=== PATIENT | female | born 1965 | race Caucasian/White ===

== ENCOUNTER → 2021-04-25 13:17 | Outpatient (CLI) | payer OTHER, SELFPAY ==
[2021-04-25 13:37] LABS: Bacteria Urine None Seen; RBC Urine None Seen (0-5/HPF); WBC Urine None Seen (0-5/HPF)
[2021-04-25 15:18] LABS: Add Manual Diff / Slide Review NO; Basophils Absolute Auto 0 /uL (0-100); Basophils Percent Auto 0.7 % (0-2); Eosinophils Absolute Auto 400 /uL (0-450); Eosinophils Percent Auto 5.9 % (2-4); Hematocrit 40.8 % (36-46); Hemoglobin 13.5 g/dL (12.0-16.0); Lymphocytes Absolute Auto 1800 /uL (1100-4500); Lymphocytes Percent Auto 30.5 % (25-40); Mean Corpuscular HGB Conc 33.2 % (30-36); Mean Corpuscular Hemoglobin 30.6 PG (26-34); Mean Corpuscular Volume 92.1 fL (80-100); Monocytes Absolute Auto 500 /uL (0-900); Monocytes Percent Auto 8.7 % (3-14); Neutrophils Absolute Auto 3200 /uL (1500-7000); Neutrophils Percent Auto 54.2 % (50-75); Platelet Count 211 X10^3/uL (150-400); Red Blood Cell Count 4.43 X10^6/uL (4.0-5.2); Red Cell Distribution Width 12.6 % (11.6-14.8); White Blood Cell Count 5.9 X10^3/uL (4.5-11.0)
[2021-04-25 15:38] LABS: BUN Creatinine Ratio 29.4 (6-22); Blood Urea Nitrogen 25 mg/dL (7-17); Calcium 9.5 mg/dL (8.4-10.2); Carbon Dioxide 23 mmol/L (22-32); Chloride 106 mmol/L (98-107); Estimated Glomerular Filt Rate > 60.0 mL/min (>60); Glucose 128 mg/dL (70-100); HEMOLYSIS < 15 (0-50); Potassium 3.9 mmol/L (3.4-5.1); Sodium 138 mmol/L (137-145)
[2021-04-25 15:50] LABS: Appearance Urine UA CLEAR; Bilirubin Urine UA NEGATIVE (NEGATIVE); Color Urine UA YELLOW; Glucose Urine UA NEGATIVE (Negative); Ketones Urine UA NEGATIVE (NEGATIVE); Leukocyte Esterase Urine UA NEGATIVE (NEGATIVE); Nitrite Urine UA NEGATIVE (Negative); Occult Blood Urine UA 1+ (Negative); Protein Urine UA NEGATIVE (Negative); Specific Gravity Urine UA >=1.030 (1.000-1.035); Urobilinogen Urine UA 0.2 E.U./dL (0.2)
[2021-04-25 16:02] LABS: pH Urine UA 5.5 (4.5-8.0)
[2021-04-25 16:07] LABS: Culture Indicated Urine Cult Not Indicated; Mucus Urine 2+ (Negative); Squamous Epithelial Cell Urine 5-10 /HPF (0-5/HPF)
== END ==
PROVIDERS: PCP Family Medicine; Referring Provider Orthopaedic Surgery Orthopaedic Surgery of the Spine; Visit Provider Orthopaedic Surgery Orthopaedic Surgery of the Spine
DX: Z01.818 Encounter for other preprocedural examination (principal); Z01.812 Encounter for preprocedural laboratory examination; N39.0 Urinary tract infection, site not specified
CPT/HCPCS: 36415; 80048; 81001; 85025; 93005

== ENCOUNTER → 2021-05-12 11:52 | Outpatient (CLI) | payer OTHER, SELFPAY ==
[2021-05-12 12:49] LABS: COVID19 -Nasal RAPID Negative (Negative)
== END ==
PROVIDERS: PCP Family Medicine; Visit Provider Physician Assistant
DX: Z01.812 Encounter for preprocedural laboratory examination (principal); Z20.822 Contact with and (suspected) exposure to COVID-19
CPT/HCPCS: 87635

== ENCOUNTER 2021-05-14 11:38 | Day surgery (SDC) | payer OTHER, SELFPAY ==
[2021-05-04 12:12] VITALS: BMI 31.2
[2021-05-14] VITALS (11 sets, daily range): BP systolic 108–137; BP diastolic 56–87; PULSE 74–98; RESP 11–20; TEMP 36.1–37.1; O2SAT 93–100; BMI 31.2
--- NOTE | 2021-05-14 | DI.RAD.S_ITS ---
PROCEDURE: XR LUMBAR SPINE 2-3V INDICATIONS: L5-S1 TLIF TECHNIQUE: 2 intraoperative fluoroscopic views of the lumbar spine were acquired. COMPARISON: None. FINDINGS: Intraoperative fluoroscopic images of lumbar spine shows transpedicular fusion of 2 lower lumbar spine vertebral bodies with intervertebral spacer placement. IMPRESSION: Fluoro guidance was provided intraoperatively for posterior fusion of lower lumbar spine vertebral bodies. Dictated by: Malcolm Louise M.D. on 05/14/2021 at 19:22 Approved by: Malcolm Louise M.D. on 05/14/2021 at 19:23
[2021-05-14] MEDS: LACTATED RINGERS 1,000 ML 42 ML IV ×2 (12:56→16:57)
--- NOTE | 2021-05-14 13:54 | PM.PREOP ---
Pre-operative Note COVID-19 COVID-19 status: Negative Result date/Date tested (Pos, Neg/Pending): 05/12/21 Interval Note History & Physical reviewed/Exam performed by Physician: Yes Changes to H&P: No
[2021-05-14] MEDS: CEFAZOLIN 1 GM VIAL 2 GM IV (14:30)
--- NOTE | 2021-05-14 15:06 | SUR.OPER ---
Prone on spine table, head in foam head support, padded chest and pelvic supports, gel pad at knees, lower legs supported by pillows; nipples, genitalia and toes free of pressure, arms secured on foam padded arm boards at <90 degrees abduction. Tape over blanket at thigh secured to table.
[2021-05-14] MEDS: BUPIVACAINE LIPOSOME 266 MG/20 ML VIAL INJ (15:17)
[2021-05-14] MEDS: BUPIVACAINE 0.25% (PF) VIAL 30 ML INJ (15:17)
[2021-05-14] MEDS: ACETAMINOPHEN IV 1,000 MG/100 ML VIAL 400 MG IV (15:51)
--- NOTE | 2021-05-14 17:37 | PM.OP.1 ---
Operative Date/Time/Diagnoses Date of procedure: 05/14/21 Time of procedure: 13:37 Pre-op diagnosis: 1. L4-5 spondylolisthesis 2. L4-5, L5-S1 spinal stenosis with radiculopathy Post-op diagnosis: same Procedure & Clinicians Procedure: 1. L4-5 Postero-lateral and posterior interbody fusion 2. L4-5 interbody cage placement. 3. L4-5 decompressive laminectomy with bilateral facetecomies 4. L4-5 Posterior non-segmental instrumentation 5. L5-S1 left hemilaminectomy 6. Surfside of bone marrow from iliac crest 7. Utilization of microsurgical technique and operating microscope Same procedure as scheduled: Yes Indications: Patient has been having chronic back pain and worsening lumbar radiculopathy. Patient failed multiple conservative management with worsening pain weakness and numbness in her lower extremity. Patient has been having difficulty performing activity of daily living. After discussing risks benefits of treatment options, patient elected proceed with surgery. Surgeon: Oneil Acosta Curriculum And Instruction Specialist: Kyle Louis Click Yes if Unassisted: No Anesthesia Type: General Operative Notes Closure Type: primary Specimen(s): none sent Prosthetic devices, grafts, tissues, transplants, or devices: Globus revolve screws, Rise cage Estimated Blood Loss (mL): 250 Blood products transfused: none Procedure in detail: Patient was seen in the preoperative area. Risks and benefits of the surgery was discussed with the patient. Informed consent was obtained from the patient and placed in the chart. Surgical site was marked. Patient was taken to the operative room. General anesthesia was administered. Prophylactic antibiotic was given to the patient less than 30 min before the incision was made. Patient was placed into a prone position on the Kavin table. Patient's back was then prepped and draped in the sterile fashion. Time-out was performed at this time. Using AP and lateral C-arm imaging the interval between L4-5 L5-S1 was identified and marked on patient's back. A 2 inch incision 2 in from midline was made on the left side first. The fascia was incised in line with skin incision. Globus MARS retractors was placed inside the incision and docked onto the L4 lamina. Using microsurgical technique and operating microscope, a L4 laminectomy and L4-5 facetectomy was performed using a Kerrison rongeur. The disc space at L4-5 was identified. Patient was found have severe neural foramen stenosis and lateral recess stenosis which was fully decompressed after the laminectomy and facetectomy was completed at the L4-5 level. The laminectomy and facetectomy rendered L4-5 level grossly unstable and will require fusion procedure at the same time. And a total diskectomy was performed at L4-5 level. The endplates were decorticated using a rasp and shaver. The total diskectomy and decortication was performed at L4-5 level in order to to accomplish a L4-5 fusion. The local bone from the laminectomy and facetectomy was saved for local bone grafting. After the total diskectomy and decortication was completed, Trifecta bone graft material was combined with local bone that was harvested earlier. At this time, a separate skin is incision was made over the iliac crest. A Jamshidi needle was inserted into the iliac crest through a separate skin incision. 5 cc of bone marrow aspiration was obtained through the separate skin incision using a Jamshidi needle from the iliac crest. The bone marrow aspiration was combined with local bone and the via cell bone grafting material. The bone grafting material was placed into the L4-5 interbody space along with a expandable cage. The cage was expanded to its maximum height using the torque limiting screwdriver. At this time the MARS retractor was redirected over the of L5 lamina. Using microsurgical technique and operating microscope, a L5-S1 heminectomy was performed using the Kerrison rongeur. The ligamentum flavum was also resected at the side of the hemilaminectomy for further decompression of the epidural space. At this time a mirror image incision was made on the right side. The fascia was incised in line with the skin incision. Globus MARS retractor was inserted and docked onto the L4-5 posterolateral gutter. Using the power drill, posterior-lateral decortication was performed at L4-5 level until bleeding cortical bone was identified. The remaining bone grafting material was placed into the L4-5 posterior lateral gutter he order to accomplish posterolateral fusion at the L4-5 level. Using the double C-arm technique, pedicle screws were placed into the L4 and L5 pedicles bilaterally. This was done by placing the Jamshidi needle into the pedicles, then placing the guidewires over the Jamshidi needle, and finally placing the cannulated screws over the guidewires bilaterally. After the pedicle screws were placed, 2 titanium rods was locked into the heads of the pedicle screws using locking caps and torque limiting screwdriver. After all the hardware was placed, and confirmed with AP and lateral C-arm imaging, the wound was then irrigated with sterile normal saline and packed with Ray-Antonio gauze for 3 min to accomplish hemostasis. After the gauze was removed the deep fascia was closed with #1 Vicryl suture. The subcutaneous layer was closed with 2-0 Vicryl. The skin was closed with skin saadia. Patient tolerated the procedure well. There were no complications. Complications: none Post-operative Condition: stable Disposition: PACU Plan for aftercare: Admit to inpatient hospital
--- NOTE | 2021-05-14 17:48 | SUR.PHASEI ---
Patient awake, talking, denies pain/nausea. Spoke with Dr. Lawrence.
[2021-05-14] MEDS: OXYCODONE IR 5 MG TABLET PO (17:59)
--- NOTE | 2021-05-14 18:37 | SUR.PHASEI ---
1824 to room 211, bed down and locked, call light within reach. [place] bag to room with her, patient getting her cell phone out when I left the room. Pt requesting food, oriented, pleasant and appreciative. SCD's on, No questions from patient or staff.
[2021-05-14] MEDS: ONDANSETRON 4 MG/2 ML INJ IV (19:15)
[2021-05-14] MEDS: SODIUM CHLORIDE 0.9% 1,000 ML 100 ML IV (19:16)
[2021-05-14] MEDS: hydrOXYzine pamoate 25 MG CAPSULE PO (19:26)
[2021-05-14] MEDS: OXYCODONE IR 5 MG TABLET 10 MG PO (20:49)
[2021-05-14] MEDS: SENNOSIDES 8.6 MG TABLET 17.2 MG PO (20:50)
[2021-05-14] MEDS: DOCUSATE 100 MG CAPSULE PO (20:50)
--- NOTE | 2021-05-14 22:35 | PC.ADMIT ---
[address] [facility] [address] Admission Note:Safe hand off from PACU. Patient arrived to the floor at 1830. VSS. Patient is only having mild pain 2/10 and some muscle spasms, She also has some nausea. Patient given 4mg Zofran IV per EMAR, which took away the nausea. Patient also given Vistiril per EMAR for spasms. Patient has a bulky dressing with some shadow drainage. Patient was able to ambulate to the bathroom but did state that she felt shaky and had visual tremors which dissipated. CMS is WNL. Ice pack applied and IS encouraged. SCD's applied, bed is low and locked and call light is within reach. The patient,Rossana Varghese,56 y/o, was given written information regarding hospital policies, unit procedures and contact persons. Patient's smoking status: Current every day smoker. Vital Signs - 8 hr 05/14/21 17:37 05/14/21 17:42 05/14/21 17:47 Temperature 98.1 F Pulse Rate 86 98 H 97 H Respiratory Rate 11 L 20 14 Blood Pressure 113/67 115/66 133/56 L Pulse Oximetry 94 96 98 05/14/21 17:52 05/14/21 18:02 05/14/21 18:18 Temperature 98.0 F Pulse Rate 95 H 93 H 92 H Respiratory Rate 13 12 13 Blood Pressure 126/87 123/58 L 137/67 Pulse Oximetry 97 97 98 05/14/21 19:05 05/14/21 19:35 05/14/21 20:35 Temperature 97.1 F L 96.9 F L 97.2 F L Pulse Rate 89 85 74 Respiratory Rate 16 16 18 Blood Pressure 125/77 125/77 111/79 Pulse Oximetry 96 99 100 05/14/21 21:34 Temperature 97.7 F Pulse Rate 96 H Respiratory Rate 16 Blood Pressure 108/72 Pulse Oximetry 93
[2021-05-15] MEDS: CEFAZOLIN 1 GM VIAL 2 GM IV ×2 (00:14→06:27)
[2021-05-15] MEDS: OXYCODONE IR 5 MG TABLET 10 MG PO ×4 (00:27→10:44)
[2021-05-15] MEDS: ACETAMINOPHEN 325 MG TABLET 650 MG PO ×2 (00:28→06:25)
[2021-05-15 01:06] VITALS: BP 110/64; PULSE 82; RESP 14; TEMP 36.9; O2SAT 95
[2021-05-15 03:26] VITALS: BP 103/59; PULSE 86; RESP 14; TEMP 36.7; O2SAT 96
[2021-05-15 06:11] LABS: Hematocrit 32.1 % (36-46); Hemoglobin 10.9 g/dL (12.0-16.0)
[2021-05-15] MEDS: THYROID, PORK 30 MG TABLET PO (06:24)
[2021-05-15] MEDS: LEVOTHYROXINE 150 MCG TABLET PO (06:25)
[2021-05-15 07:49] VITALS: BP 108/65; PULSE 78; RESP 16; TEMP 36.8; O2SAT 95
[2021-05-15] MEDS: LORATADINE 10 MG TABLET PO (09:07)
[2021-05-15] MEDS: SODIUM CHLORIDE 0.9% FLUSH 10 ML IV (09:07)
[2021-05-15] MEDS: DOCUSATE 100 MG CAPSULE PO (09:07)
--- NOTE | 2021-05-15 10:30 | PT.IIE ---
Current Diagnoses Spondylolisthesis, lumbar region (05/14/21) Spinal stenosis, lumbar region without neurogenic claudication (05/14/21) Surgery Performed Operation Date: 05/14/21 13:45 Actual Procedures p L5-S1 right hemilaminectomy, L4-5 TLIF w. posterior instrumentation(Not Applicable) - Oneil Acosta MD Surgical History (Last Updated 05/04/21 @ 12:27 by Karmen Burrows, RN) History of bilateral tubal ligation History of History of endometrial ablation History of hysterectomy Medical History (Last Updated 05/04/21 @ 12:27 by Karmen Burrows, RN) Arthritis Hypothyroidism IBS (irritable bowel syndrome) Physical Therapy Inpatient Evaluation/Re-Eval M1 PT/OT-IP Prior Functional Status Start: 05/15/21 10:26 Freq: NEEDED Status: Active Protocol: Document 05/15/21 10:28 [facility] (Rec: 05/15/21 10:34 [facility] [id number]) Medical Review Prior Functional Status Medical History Reviewed Yes Diet/Fluid Consistency Regular Communication WNL Mobility and Gait indep w/o AD, works for [employer] at [employer] Activities of Daily Living and IADL's indep Social History Household Members children Living Arrangements Mobile home Number of Floors (Floors) One Floor Number of Stairs To Enter/Railing? 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 Small space btwn bed and bathroom that walker will not fit and willr equire cane, son is working on getting her chair for shower M2 PT-IP Current Condition Start: 05/15/21 10:26 Freq: NEEDED Status: Active Protocol: Document 05/15/21 10:28 [facility] (Rec: 05/15/21 10:34 [facility] [id number]) Physical Therapy Current Condition Current Condition Evaluation Date 05/15/21 Treatment Diagnosis TLIF Precautions Lumbar Precautions Log Roll,No Twisting,Limit Bending,Lifting Restriction of 10 lbs,Gait Belt above Incisional Area Weight Bearing Status Weight Bearing Status Weight Bear as Tolerated M3 PT-IP Subjective Start: 05/15/21 10:26 Freq: NEEDED Status: Active Protocol: Document 05/15/21 10:28 [facility] (Rec: 05/15/21 10:34 [facility] [id number]) Subjective Physical Therapy Visit Type Type Initial Evaluation Visit Start Time 09:55 Visit Stop Time 10:23 Total Visit Minutes 28 Number of CANNERY WORKER Visits 0 Physical Therapy Visit Comments Patient Goals go home today Therapy Pain Assessment Pain When Pain Assessed During Mobility Pain Present Pain Present Pain Reported M4 PT-IP Mobility and Gait Start: 05/15/21 10:26 Freq: NEEDED Status: Active Protocol: Document 05/15/21 10:28 [facility] (Rec: 05/15/21 10:34 [facility] [id number]) PT-Bed Mobility Assessment Rolling Type of Rolling Roll to Left Level of Assist Independent Supine to Sit Supine to Sit Standby Assistance,Bedrails Scooting Scooting to Edge of Bed Independent Scooting Up and Down in Bed Independent PT-Transfer Assessment Sit to and From Stand Sit to and from Stand Standby Assistance,Use of Upper Extremities Equipment Transfer Assistive Device Gait Belt,Front Wheeled Walker Orthotic/Prosthetic Devices or Brace: No Comments Mobility Comments pt scooted over in bed w/min cueing then did log roll w/ some use of rail SBA w/min cuieng. SIt to stand from bed SBA then amb w/FWW 75ft to stairs and did stairs CGA w/ cueing for step to w/L rail w/ good safey. Pt then amb 125ft to room w/FWW. She then sat in chair SBA w/ cueing then did sit to stand to quad cane and was instructed on sequencing w /SBA to shower 10ft. Pt left w /OT in shower seat. Gait Assessment Gait Gait Assistance Required: Contact Guard Assist Distance (Feet) 200 Able to Maintain Weight Bearing Status Yes During Gait Assistive Devices Assistive Device Gait Belt,Straight Cane,Front Wheeled Walker Gait Deviations General Gait Pattern Antalgic,Flexed Trunk Factors Limiting Gait Function Factors Limiting Gait Function Decreased Activity Tolerance, Decreased Strength,Pain Stair Climbing Assessment Evaluation Level of Assist On Stairs Contact Guard Assistance Devices Stair Climbing Assistive Devices Left Railing Technique/Endurance Stair Climbing Direction Ascend and Descend Stair Climbing Technique Step to Step Number of Steps Climbed 3 Query Text: Stair Climbing Set # Repetitions (reps) 1 PT-Balance Assessment Sitting Balance and Reactions Static Sitting Balance Ability Normal Dynamic Sitting Balance Ability Normal Standing Balance and Reactions Static Standing Balance Ability Good Dynamic Standing Balance Ability Fair Device Used FWW M5 PT-IP Objective Assessments Start: 05/15/21 10:26 Freq: NEEDED Status: Active Protocol: Document 05/15/21 10:28 [facility] (Rec: 05/15/21 10:34 [facility] [id number]) Orientation Orientation/Cognition Level of Alertness Alert Language Function Ability No Deficits Noted Safety Awareness Understands Safety Issues Memory Description No Deficits Noted Gross Range of Motion Lower Extremity ROM Assessment Within Functional Limits M7 PT-IP Assessment and Plan Start: 05/15/21 10:26 Freq: NEEDED Status: Active Protocol: Document 05/15/21 10:28 [facility] (Rec: 05/15/21 10:34 [facility] [id number]) PT Summary Assessment and Plan Potential Rehabilitation Potential Excellent Status of Condition at Evaluation Evolving Summary Impairments Pain,ROM,Strength,Balance,Bed Mobility,Transfers,Gait, Activity Tolerance Assessment Summary Pt did an excellent job w/ mobility today requiring just min cueing. She has a lot of help at home w/family and friends and is motivated to return home. Paz understands her precautions and does have 1 month off work for recovery. No concerns from PT re: mobility and pt is cleared for home if MD agrees. Only will do another session later today prior to DC if pt has any further questions. Goals Bed Mobility Goal Independent Transfer Goal Standby Assistance Gait Goal Standby Assistance Gait Distance 150ft Other Goals up/down 5 stairs w/L rail SBA Days to Meet Goals 3 Frequency of Treatment Frequency Of Treatment Twice a Day Treatment Plan Physical Therapy Treatment Plan Bed Mobility Training,Transfer Training,Gait Training, Therapeutic Exercise,Balance Retraining,Discharge Planning, Neuromuscular Re-ed,Manual Therapy Other Recommendations and Next Treatment review use of cane & stairs as Focus needed Precautions Lumbar Precautions Log Roll,No Twisting,Limit Bending,Lifting Restriction of 10 lbs,Gait Belt above Incisional Area Recommendations To Nursing Amount of Assist Needed Standby Assistance Discharge Recommendations PT Discharge Recommendations Home with Assistance, Outpatient PT Transportation Needs at Discharge Private Vehicle
--- NOTE | 2021-05-15 10:51 | PC.NURSE ---
Pt has walked in the halls with PT and showered with OT and has been cleared for d/c home if ordered by Ortho. Pain med given for 5/10 pain. Dsg to back changed to Coversite. Pt denies needs at this time but agrees to call for assistance as needed.
--- NOTE | 2021-05-15 10:57 | OT.IP.EVAL ---
Current Diagnoses Spondylolisthesis, lumbar region (05/14/21) Spinal stenosis, lumbar region without neurogenic claudication (05/14/21) Surgery Performed Operation Date: 05/14/21 13:45 Actual Procedures p L5-S1 right hemilaminectomy, L4-5 TLIF w. posterior instrumentation(Not Applicable) - Oneil Acosta MD Past Medical History (Last Reviewed 05/15/21 @ 12:25 by Petr Wills PA-C) Arthritis Hypothyroidism IBS (irritable bowel syndrome) Surgical History (Last Reviewed 05/15/21 @ 12:25 by Petr Wills PA-C) History of bilateral tubal ligation History of History of endometrial ablation History of hysterectomy Occupational Therapy Inpatient Evaluation/Re-Eval M1 PT/OT-IP Prior Functional Status Start: 05/15/21 10:26 Freq: NEEDED Status: Active Protocol: Document 05/15/21 12:31 [facility] (Rec: 05/15/21 12:49 [facility] [id number]) Medical Review Prior Functional Status Medical History Reviewed Yes Diet/Fluid Consistency Regular Communication WNL Mobility and Gait indep w/o AD, works for [employer] Activities of Daily Living and IADL's indep with ADl's, not able to do IADL needs due to pain preventing her from doing yardword, paint the deck and carry heavy items. Social History Household Members children Living Arrangements Mobile home Number of Floors (Floors) One Floor Number of Stairs To Enter/Railing? 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 Small space btwn bed and bathroom that walker will not fit and will require the quad cane, son is working on getting her chair for shower M2 OT-IP Current Condition Start: 05/15/21 12:30 Freq: Status: Active Protocol: Document 05/15/21 12:31 [facility] (Rec: 05/15/21 12:49 [facility] [id number]) Occupational Therapy Current Condition Current Condition Evaluation Date 05/15/21 Treatment Diagnosis Spinal stenosis, S/P L5-S1 right hemilaminectomy, L4-5 TLIF Diagnosis Onset Date 05/14/21 Post Operative Precautions Lumbar Precautions Log Roll,No Twisting,Limit Bending,Lifting Restriction of 10 lbs,Gait Belt above Incisional Area M3 OT- IP Subjective and Pain Start: 05/15/21 12:30 Freq: Status: Active Protocol: Document 05/15/21 12:31 [facility] (Rec: 05/15/21 12:49 [facility] [id number]) OT- Subjective Occupational Therapy Visit Type Type Initial Evaluation Visit Start Time 09:10 Visit Stop Time 10:57 Total Visit Minutes 62 Notes Pt seen for split treatment [id number] and [id number]. Occupational Therapy Visit Comments Patient Comments Pt wiling to do Ot eval and take a shower. Patient/Caregiver Goals TO go home. OT Pain Assessment Pain When Pain Assessed At Rest Pain Present Pain Present Denied Pain M4 OT- IP ADL's Start: 05/15/21 12:30 Freq: Status: Active Protocol: Document 05/15/21 12:31 [facility] (Rec: 05/15/21 12:49 [facility] [id number]) OT [id number]-[id number] General Evaluation Self-Feeding Ability Independent OT ADL-Grooming General Evaluation Grooming Ability Standby Assistance Areas Needing Assistance Retrieving/Set-up of Grooming Items OT ADL-Oral Care Comments Oral Care Comments Educated best to spit into a cup to best follw her back precautions. OT ADL-Dressing General Eval Upper Body Dressing Ability Standby Assistance Lower Body Dressing Ability Maximum Assistance Comments OT Dressing Comments Educated pt on use of LB dressing equipment to help follow her back precautions and increased her independence for LB dressing needs. Pt will still need assist to help tie her shoes. OT ADL-Toileting Comments OT Toileting Comments Pt able to reach appropriately to wipe. Suggested use of wipes, stand to wipe, and if needed may want go consider wearing pads at night so not having to hess to the bathroom at night. Pt states seldom uses the bathrom at night and able to call her friends to assist as needed. OT ADL-Bathing Bathing Type Bathing Type Shower General Evaluation Bathing Ability Minimal Assistance Areas Needing Assistance Wash/Dry Back Devices Bathing Equipment Long Handled Sponge or Ferguson, Hand Held Shower Sprayer, Shower Chair with Arms Comments OT Bathing Comments Pt needing assist to wash/dry her back. Suggested either assist or use of long thin towel to help pt to be able to do her pericare needs by getting the towel between her legs so able to clean more effectively. Pt states son to look at getting a shower chair. M5 OT- IP IADL's Start: 05/15/21 12:30 Freq: Status: Active Protocol: Document 05/15/21 12:31 [facility] (Rec: 05/15/21 12:49 [facility] [id number]) OT-Instrumental Activities of Daily Living Home Safety Awareness Awareness of Need for Assistance at Home Good Awareness Ability to Problem Solve Emergency Able to Problem Solve Situations Home Safety Comments Pt has lots of family and friends to assist with her needs. Pt states to have the cats stay with her kids initially, when OT suggested cats may be a fall risk. Medication Management Medication Management No Deficits Identified Money Management Money Management No Deficits Identified Meal Preparation Meal Preparation Caregiver Provides Assist Revenue Manager Revenue Manager Caregiver Provides Assist M6 OT- IP Functional Cognition Start: 05/15/21 12:30 Freq: Status: Active Protocol: Document 05/15/21 12:31 [facility] (Rec: 05/15/21 12:49 [facility] [id number]) Cognitive Factors Limiting Selfcare Function Cognitive Ability Level of Alertness Alert Patient Orientation Name,Age,Birthday,Month,Date, Year,Day of Week,Place, Situation Attention Span Ability Capable of Focused Attention, Capable of Sustained Attention Ability to Follow Commands Able to Follow Multi-Step Commands Memory Description No Deficits Noted Safety Awareness Decreased Ability to Apply Precautions,Underestimates Need for Assistance Problem Solving Ability No deficits Noted Cognitive Comments Cognitive Assessment Comments Pt a little impulsive at times and needing to slow down so able to incorporate back precautions for her needs. Pt needing cues of log rolling for mobility needs. OT- Vision and Hearing OT- Hearing Assessment OT- Hearing Assessment WFL OT- Vision Assessment Visual Acuity Glasses For Reading M7 OT- IP Mobility and Balance Start: 05/15/21 12:30 Freq: Status: Active Protocol: Document 05/15/21 12:31 [facility] (Rec: 05/15/21 12:49 [facility] [id number]) OT- Bed Mobility Assessment Rolling Type of Rolling Roll to Right Level of Assistance Standby Assistance Supine to Sit Supine to Sit Assist Standby Assistance Sit to Supine Sit to Supine Assist Standby Assistance Scooting Scooting to Edge of Bed Standby Assistance OT-Transfer Assessment Sit to and From Stand Sit to and from Stand Standby Assistance Transfers Transfer Ability Standby Assistance,Contact Guard Assistance Technique Transfer Destination Bed,Shower Stall,Toilet Transfer Technique Stand Step Pivot Devices Transfer Assistive Devices Gait Belt,Front Wheeled Walker Comments Mobility Comments CGA while stepping over the threshold of the shower , otherwise SBA with FWW for level surfaces. Able to talk to pt regarding car transfer techniques in order to best follow her back precautions. OT- Gait Assessment Comments Gait Ability Comments SBA with FWW in the room. OT- Balance Assessment Sitting Balance and Reactions Static Sitting Balance Ability Normal Dynamic Sitting Balance Ability Good Standing Balance and Reactions Static Standing Balance Ability Fair M8 OT- IP Objective Assessments Start: 05/15/21 12:30 Freq: Status: Active Protocol: Document 05/15/21 12:31 [facility] (Rec: 05/15/21 12:49 [facility] [id number]) OT Gross Range of Motion Upper Extremity Range of Motion Assessment Within Functional Limits OT Strength Upper Extremity Strength Assessment Within Functional Limits M9 OT- IP Assessment and Plan Start: 05/15/21 12:30 Freq: Status: Active Protocol: Document 05/15/21 12:31 [facility] (Rec: 05/15/21 12:49 [facility] [id number]) OT Summary Assessment and Plan Potential Rehabilitation Potential Excellent Analytic Complexity at Evaluation Low Summary OT Impairments Pain,Balance,Functional Mobility,Grooming,Dressing, Toileting,Bathing,Toilet Transfers,Shower Transfers Progress Towards Goals Progressing Toward Goals Assessment Summary Pt low complexity and doing well. Pt's main barriers are steps, a little impulsive, and needing reminders for back precautions. Pt has 16/06 available assist to help her at home. Pt's son to look at getting her a shower chair. Goals Grooming Goal Independent Dressing Goal Independent Toileting Goal Independent Bathing Goal Independent Toilet Transfer Goal Independent Shower Transfer Goal Independent Days to Meet Goals 5 Frequency of Treatment Frequency Of Treatment Once a Day Treatment Plan OT Treatment Plan ADL Training,Functional Mobility,Patient/Family Education,Discharge Planning Discharge Recommendations OT Discharge Recommendations Home with Assistance Home Equipment Needs shower chair vs tub bench Transportation Needs at Discharge Private Vehicle
--- NOTE | 2021-05-15 12:22 | P.DS_ITS ---
History of Present Illness History of Present Illness Date Patient Seen: 05/15/21 Time Patient Seen: 12:22 Chief complaint: Translaminar Interbody Fusion/Laminotomy*OPB* Narrative: Refer to previous HPI. Discharge Providers Provider Discharge Date: 05/15/21 Primary care physician: Zeyad Constantino MD Consults: 05/14/21 18:36 Consult to Occupational Therapy Evaluate & Treat Comment: Physician Instructions: Evaluate and treat Consult to Physical Therapy Evaluate & Treat Comment: Physician Instructions: Evaluate and Treat Discharge provider: Petr Wills PA-C Summary Hospital Course Discharge Diagnosis: L4-5 spondylolisthesis L4-5, L5-S1 spinal stenosis with radiculopathy Status post L4-5 Postero-lateral and posterior interbody fusion 2. L4-5 interbody cage placement. 3. L4-5 decompressive laminectomy with bilateral facetecomies 4. L4-5 Posterior non-segmental instrumentation 5. L5-S1 left hemilaminectomy 6. [place] of bone marrow from iliac crest 7. Utilization of microsurgical technique and operating microscope Hospital Course: Patient was admitted to the hospital following the above-listed procedures for the above-listed diagnosis. Following the procedure the patient has been convalescing appropriately in her pain has been managed with her current pain management regimen. Patient has remained weight-bearing as tolerated with the assistance of a front wheeled walker. Patient has avoid bending, twisting, or lifting in excess of 10 lb. Patient successfully worked on ambulation with the assistance of a front wheeled walker with physical therapy. Dressing over the incision site has remained clean, dry, and intact and has been changed as needed if it becomes damaged or soiled. Status at Discharge Cognitive/behavioral status at discharge: oriented Functional status at discharge: uses cane/walker Overall status at discharge: patient is progressing back to baseline Exam Vital Signs (past 8 hours): - 05/15/21 07:49 Temperature 98.2 F Pulse Rate 78 Respiratory Rate 16 Blood Pressure 108/65 Pulse Oximetry 95 Oxygen Delivery Method Room Air Oxygen Flow Rate 0 Narrative Exam Narrative: 56-year-old female postop day 1. Patient is resting comfortably in bed, is in no acute distress, is alert and oriented x3. Skin is warm and dry, and the skin surrounding the incision site is free of erythema, warmth, induration, or discharge. Dressing over the incision site is clean, dry, and intact. Good sensation appreciated throughout the bilateral lower extremities to light touch. Gross motor function intact throughout the bilateral lower extremities. DP pulses palpated bilaterally. Calves are soft and nontender, negative Homans sign. No other signs of DVT appreciated Const General: cooperative, healthy appearing and comfortable Resp Effort & Inspection: normal respiratory effort and able to speak in complete sentences Skin General: no rashes or lesions noted Objective Labs Result Diagrams: 05/15/21 05:55 Labs: Laboratory Results - last 24 hr 05/15/21 05:55 Hgb 10.9 L Hct 32.1 L PFSH Medical History Arthritis Hypothyroidism IBS (irritable bowel syndrome) Surgical History History of bilateral tubal ligation History of History of endometrial ablation History of hysterectomy Social History household members: children Smoking Status: Current every day smoker alcohol intake: current Discharge Assessment & Plan Assessment and Plan Assessment: Patient is doing well and is stable. Plan of Treatment: Patient is to continue outpatient physical therapy following discharge from hospital. First postoperative visit is scheduled for 2 weeks following discharge from hospital. Patient is to remain weight-bearing as tolerated with the assistance of a front wheeled walker. Dressing over the incision site can be changed as needed if it becomes damaged or soiled. Current pain management regimen is to be continued. Patient is to contact clinic with any concerns or questions. Any signs of increased redness, swelling, warmth, pain, or discharge from around the incision site should be reported to the clinic. Patient is to avoid bending, twisting, or lifting in excess of 10 lb. Discharge Plan Discharge Plan Patient Disposition: Home Provider Discharge Comment: Patient cleared for discharge pending PT clearance. Discharge orders & Medications Discharge Orders: Discharge (Order); Ordered 05/15/21 Ordered By: Petr Wills Prescriptions: New acetaminophen 325 mg Tablet 650 mg PO Q6HR PRN (Reason: Pain, Mild (1-3)) Qty: 90 RF: 0 oxycodone 5 mg Tablet 10 mg PO Q3HR PRN (Reason: Pain, Severe (7-10)) Qty: 42 RF: 0 Continued ibuprofen 200 mg Capsule 800 mg PO DAILY RF: 0 levothyroxine 150 mcg Tablet 150 mcg PO DAILY RF: 0 thyroid (pork) [[place] Thyroid] 30 mg Tablet 30 mg PO DAILY RF: 0 Zyrtec 10 mg Capsule 10 mg PO DAILY RF: 0 Follow up/Referrals: Zeyad Constantino MD [Primary Care Provider] - Diet/Activity/Treatments Diet: Diet as Tolerated and Regular Activity: Avoid bending, twisting, or lifting in excess of 10 lb. Skin/Wound/Dressing Care Report to your healthcare provider any signs of infection, such as:: chills, fever, night sweats, increased pain, unusual drainage and unusual redness Dressing: Dressing can be changed as needed if it becomes damaged or soiled. Other wound treatment: Avoid placing topical ointments over the incision site. Avoid soaking the incision site. Visit Report/Discharge Packet Instructions: DI for Transforaminal Lumbar Interbody Fusion Stand Alone Forms: Surgery Discharge Discharge Data Primary Care Provider: Zeyad Constantino Attending Provider: Oneil Acosta VTE Deep Vein Thrombosis/Pulmonary Embolism Present on Admission: No
--- NOTE | 2021-05-15 13:44 | PC.NURSE ---
Pt is dressed and ready for discharge home with son. IV removed. Pt has showered and dsg to back was changed. Went over d/c instructions with Pt and Son-discussed d/c meds, time of last dose, reviewed stroke education, showering, no driving while on narcotics, drink plenty of fluids to prevent constipation or dehydration, consider stool softeners if needed, keep dsg clean and dry, follow back precautions, and follow up as directed. Pt out via w/c by SOFTWARE RELEASE MANAGER to POV with Son and all belongings.
--- NOTE | 2021-05-15 14:54 | CM.DANOTE ---
DCP ASSESSMENT: Patient is a 56 year-old female who was admitted for L4-5 Postero-lateral and posterior interbody fusion. PCP is Zeyad Constantino. [facility] and self-[facility]. RABBIT DRESSER Student met with patient she received in bed alert and oriented. Educated patient of social work role in discharge planning. Patient reported she is independent with ADL?s at baseline including driving. Patient anticipates D/C home with son Denis and roommates who will provide additional support. Denis will provide transportation at time of D/C. Occupational and physical therapy both recommend home with assistance. Patient is aware of need for outpatient physical therapy. She plans to schedule an appointment at a physical therapy clinic in [place]. PLAN: Anticipate D/C home. CM Team to continue to follow. REJI Roca MSW Student Discharge Planning/Care Management CM Discharge Assessment Start: 05/15/21 12:59 Freq: Status: Discharge Protocol: Document 05/15/21 13:00 [facility] (Rec: 05/15/21 13:01 [facility] [id number]) Discharge Planning Assessment Assigned Drill Runner REJI Red Student Contact Information Denis Bai, son Advance Directives? No History Provided By Patient,Medical Record Has Patient been admitted in last 30 No days? Prior Living Arrangements Mobile home Household Members children Type of transporation used prior to Drives own vehicle admit Independent with ADL's Yes Is patient alert and oriented? Yes Caregiver for Another No Barriers to Discharge No Discharge Plan Home Transportation Arrangement Austin Barrios will provide transportaion Referrals Initiated None needed Whiteboard Updated in Patient Room with Yes name and ext. # of Drill Runner Review Status In Process Pre-Anesthesia Assessment Start: 05/04/21 12:12 Freq: Status: Discharge Protocol: Document 05/04/21 12:12 [facility] (Rec: 05/04/21 12:44 [facility] [id number]) Pre-Anesthesia Assessment Preferred Name Naheed Patient Information Reviewed Via Phone Assessment Assessment Completed With Patient Diagnostic Results BMP/CMP,CBC,EKG Comment Labs/EKG @ [facility] 04/25/21 COVID screen @ [facility] 05/12/21 Primary Care Provider Edwin Constantino Seen Specialist in Last 12 Months Yes Specialist Seen Orthopedist Primary Language Spanish Production Supervisor Trainee Required No Height 162.56 cm Weight 82.554 kg Body Mass Index (BMI) 31.2 Hearing Ability Normal Visual Assist Magnifying Glass Dentition Type Teeth, Natural Present,Teeth, Missing Barriers to Learning None Hx Anesthesia Reactions No Hx Family Anesthesia Reaction No Hx Malignant Hyperthermia No Hx Blood Transfusions No Anesthesia Review Requested No alcohol intake current alcohol intake frequency holidays/special occasions only Smoking Status Current every day smoker Tobacco type e-cigarettes Substance Use Type does not use Pain Present Pain Reported Musculoskeletal Symptoms Abnormal Gait,Back Pain, Difficulty Walking,Limited Range of Motion,Numbness, Radiating Pain into Limb, Tingling History of Falling (Recent or History of No ) Patient is completely paralyzed or No completely immobile Mental Status Oriented to own ability Is patient on oxygen? No Does patient have UMANZOR/SOB No Hx Sleep Apnea No Currently Taking a Beta Parvin No Can You Climb a Flight of Stairs Without Yes SOB Hx Chest Pain No Hx SOB No Hx Syncope or Dizziness No Anti-Coagulant Therapy No Has a Vice President Quality Assurance No Cardiac Testing No Hx Pacemaker/ICD No Pacemaker Rep Required? No Cardiac Clearance Received Not Applicable Diet Type At Home Regular dysphagia No Urinary Catheter Present No Hx Urinary Self Catheterization No Diabetes No Patient No Lactating No Hx Drug Resistant Organism No Presence of External or Internal Medical No Devices Have you had any close contact with No someone diagnosed with COVID-19? Marital Status Single Lives With children Prior Living Arrangements Mobile home Number of Floors (Floors) One Floor Support System Child/Children,Friend(s) Does the Patient Have Assistance After Yes Surgery Patient Discharge Plan Description Return Home Comment Pt advised Feels Safe in Current Environment Yes Been Physically Hurt or Threatened By a No Person in Current Environment Do you have thoughts of harming yourself None or others? Are you currently considering suicide? No Do you have a plan to hurt yourself or No Plan others? Do You Have Any Spiritual Beliefs That No May Affect Your HC Choices? Do You Have Any Cultural Practices That No May Affect Your HC Choices? Comment Moravian Who Can We Speak to About Patient's Care Family, friends Identifying Code for Release of Patient Declines to issue Information Health Care Proxy/Next of Kin Denis (son) Health Care Proxy Emergency Contact Name Denis (son) Emergency Contact Advance Directives? No Power of Zigzag Stitcher No PAC Instructions Durable medical equipment, Medications to take/avoid, Nasal antibiotic,No ETOH/ petroleum product on skin DOS, NPO,Post-op transportation, Sturdy shoes/comfortable clothes,Do not bring valuables and remove jewelry
== END 2021-05-15 13:51 | disposition home or self-care (01) ==
LOC: OR 11:42 → AC 11:42
PROVIDERS: PCP Family Medicine; Referring Provider Orthopaedic Surgery Orthopaedic Surgery of the Spine; Visit Provider Orthopaedic Surgery Orthopaedic Surgery of the Spine
PROC: (CPT 22633; principal; 2021-05-14 13:45)
DX: M43.16 Spondylolisthesis, lumbar region (principal); M48.061 Spinal stenosis, lumbar region without neurogenic claudication; M54.16 Radiculopathy, lumbar region
CPT/HCPCS: 22633; 20939; 22853; 22840; 63030; 63047; 36415; 72100; 76000; 82962; 85014; 85018; 97116; 97162; 97165; 97530; 97535; 99406; C1776; C9290; J0131; J0330; J0690; J1100; J1170; J2250; J2405; J2704; J3010